=== PATIENT | female | born 1985 ===

== ENCOUNTER 2017-07-21 03:32 | Emergency (ER) | payer SELFPAY ==
[2017-07-21 04:04] VITALS: O2SAT 100
[2017-07-21] MEDS ORDERED: Sodium Chloride 0.9% 1,000 ML IV STA (04:05)
[2017-07-21 04:16] LABS: BASO # 0.1 K/uL (0.0-0.2); BASO % 1.2 % (0.0-2.0); EOS # 0.2 K/uL (0.0-0.7); EOS % 2.4 % (0.0-4.0); HEMATOCRIT 33.5 % (34.0-47.0); LYMPH # 2.7 K/uL (1.0-4.3); LYMPH % 32.7 % (20.0-40.0); MEAN CELL VOLUME 84.2 fl (81.0-99.0); MEAN CORPUSCULAR HEMOGLOBIN 28.9 pg (27.0-31.0); MEAN CORPUSCULAR HGB CONC 34.3 g/dL (33.0-37.0); MEAN PLATELET VOLUME 8.3 fl (7.2-11.7); MONO # 0.5 K/uL (0.0-0.8); MONO % 6.7 % (0.0-10.0); NEUT # 4.7 K/uL (1.8-7.0); RED CELL DISTRIBUTION WIDTH 14.8 % (11.5-14.5); WHITE BLOOD COUNT 8.2 K/uL (4.8-10.8)
--- NOTE | 2017-07-21 04:25 | ED PDOC ---
HPI: Headache Time Seen by Provider: 07/21/17 03:40 Chief Complaint (Nursing): Headache Chief Complaint (Provider): Headache History Per: Patient History/Exam Limitations: no limitations Onset/Duration Of Symptoms: Mins Current Symptoms Are (Timing): Still Present Severity: Severe Quality: "Pain" Preceeding Symptoms: Other (palpitations) Associated Symptoms: Nausea Additional Complaint(s): 31 y/o F presents to ED c/o headache. Patient states that she woke up tonight to go to the bathroom and suddenly starting having palpitations, a CP and felt dazed. Symptoms resolved spontaneously right after but since then she has had a headache that is generalized, no radiation, no vomiting or visual symptoms but associated with nausea. Patient admits 2 previous similar episodes in the past. She has Hx of low heart rate but is not on any medication at this time. Past Medical History Vital Signs: Last Vital Signs Temp 98.6 F 07/21/17 03:45 Pulse 69 07/21/17 03:45 Resp 17 07/21/17 03:45 BP 90/42 L 07/21/17 03:45 Pulse Ox 100 07/21/17 03:45 - Medical History PMH: No Chronic Diseases - Family History Family History: States: [place] (brother) - Social History Current smoker - smoking cessation education provided: No Alcohol: None Drugs: Denies - Home Medications Home Medications: Ambulatory Orders Medication Instructions Recorded No Known Home Med 07/21/17 - Allergies Allergies/Adverse Reactions: Allergies Allergy/AdvReac Type Severity Reaction Status Date / Time No Known Allergies Allergy Verified 07/21/17 03:48 Review of Systems ROS Statement: Except As Marked, All Systems Reviewed And Found Negative Constitutional: Positive for: Weakness Neurological: Positive for: Headache Psych: Positive for: Anxiety Physical Exam - Physical Exam Appears: Positive for: Non-toxic, No Acute Distress Skin: Positive for: Normal Color, Warm Eye Exam: Positive for: Normal appearance, EOMI, PERRL ENT: Positive for: Normal ENT Inspection Neck: Positive for: Normal Cardiovascular/Chest: Positive for: Regular Rate, Rhythm. Negative for: Gallop , Murmur Respiratory: Positive for: Normal Breath Sounds. Negative for: Crackles, Rales , Wheezing Gastrointestinal/Abdominal: Positive for: Soft. Negative for: Tenderness, Distended, Guarding Extremity: Positive for: Normal ROM. Negative for: Tenderness, Pedal Edema Neurologic/Psych: Positive for: Alert, Oriented. Negative for: Motor/Sensory Deficits - Laboratory Results Result Diagrams: 07/21/17 04:05 07/21/17 04:05 - ECG O2 Sat by Pulse Oximetry: 100 - Progress ED Course And Treament: Improved after Tylenol and IV fluids. Stable VS. NO new episodes of palpitations , CP or dizziness reported while patient was in the hosp. Disposition - Clinical Impression Clinical Impression: Headache - Patient ED Disposition Is Patient to be Admitted: No Counseled Patient/Family Regarding: Diagnosis, Need For Followup - Disposition Referrals: [facility] [Outside] Disposition Time: 05:30 Condition: STABLE Instructions: Acute Headache (ED) Forms: [facility] (Mongolian) Print Language: BELARUSIAN
[2017-07-21 04:56] LABS: BLOOD UREA NITROGEN 12 mg/dl (7-17); CALCIUM 8.4 mg/dL (8.4-10.2); CARBON DIOXIDE 23 mmol/L (22-30); CHLORIDE 111 mmol/L (98-107); GFR AFRICAN-AMERICAN > 60; GLUCOSE,RANDOM 88 mg/dL (65-105); MAGNESIUM 2.2 MG/DL (1.6-2.3); POTASSIUM 3.5 MMOL/L (3.6-5.0); SODIUM 141 mmol/l (132-148)
[2017-07-21 05:31] VITALS: BP 103/53; PULSE 68; RESP 16; TEMP 98.2
== END 2017-07-21 05:43 | disposition home or self-care (01) ==
LOC: H.ER 03:32
DX: R51 Headache (principal)
CPT/HCPCS: 80048; 83735; 85025; 96360; 99285; J7040